=== PATIENT | female | born 1965 | race Caucasian/White ===

== ENCOUNTER 2017-12-10 10:40 | Day surgery (SDC) | payer BC ==
[2017-12-10] MEDS ORDERED: FENTANYL PF 100MCG/2ML VIAL IV ONE (10:41)
[2017-12-10] MEDS ORDERED: MIDAZOLAM HCL 2MG/2ML VIAL IV ONE (10:41)
[2017-12-10] MEDS ORDERED: PROPOFOL 10 MG/ML VIAL IV ONE (10:41)
[2017-12-10] MEDS ORDERED: LIDOCAINE 2% MDV (20MG/ML) 20ML VIAL IV ONE (10:41)
--- NOTE | 2017-12-11 12:50 | Operative Note ---
DATE OF SURGERY: 12/10/2017 OPERATION: 1. ESOPHAGOGASTRODUODENOSCOPY with biopsy and APC coagulation of gastric AVM. 2. COLONOSCOPY with cold forceps polypectomy. PREOPERATIVE DIAGNOSES: 1. Chronic heartburn despite therapy. 2. Colon cancer screening, average risk. POSTOPERATIVE DIAGNOSES: 1. Bleeding gastric AVM. 2. Gastritis. 3. Rectosigmoid colon polyp. PREPARATION QUALITY: Excellent. ESTIMATED BLOOD LOSS: Minimum. COMPLICATIONS: None apparent. PROCEDURE: After informed consent was obtained from the patient, she was placed in the left lateral decubitus position in the endoscopy suite, sedated and monitored by the department of anesthesia. A well-lubricated [id number] gastroscope was placed in the posterior oropharynx and under direct visualization passed to the proximal esophagus. The endoscope was advanced through the proximal, mid, and distal esophagus. There were some mild edematous changes at the GE junction. No other abnormalities otherwise noted. The gastric body was entered. There was bleeding at the area of the lesser curve and after rinsing, it appeared there was an underlying bleeding gastric AVM. Photograph was taken after the bleeding had subsided. There were some flecks of heme and mild diffuse erythematous changes throughout the body of the antrum. The pylorus, duodenal bulb, and sweep were unremarkable. J-turn views of the proximal stomach were unremarkable as well other than some heme flecks being noted. The endoscope was then straightened. A circumferential APC catheter was inserted through the endoscope and settings at APC for stomach were set. Several bursts were obtained with 1-2 second bursts obtained at the area of the AVM. There was noted to be white discoloration and hemostasis noted. Photograph was taken after the completion. Random gastric and antral biopsies were also obtained. No excessive bleeding was noted. The endoscope removed from the patient. No new findings noted. Digital rectal exam was unremarkable. A well-lubricated [id number] colonoscope was inserted into the rectum and advanced through a somewhat tortuous colon to the level of the cecum. Appendiceal orifice, cecum, ileocecal valve, ascending colon, transverse colon, and descending colon were unremarkable. The sigmoid colon was unremarkable; however, there was a diminutive polyp in the rectosigmoid colon which was removed with a cold forceps. Minimal bleeding was noted. The rectum was otherwise unremarkable in forward and in J-turn views. The endoscope was straightened, the rectal ampulla deflated, and the endoscope was removed. RECOMMENDATIONS: I suggest the patient switch to pantoprazole 40 mg twice daily before meals. We will await the results of tissue histology. She will require repeat colonoscopy in 5-10 years pending tissue results. As always, thank you for allowing me to participate in the healthcare of your patients. CC: Dr. Lashaun AVILA
== END 2017-12-10 12:30 | disposition home or self-care (01) ==
LOC: HOP 10:40
PROVIDERS: ATTEND Internal Medicine Gastroenterology
DX: Z12.11 Encounter for screening for malignant neoplasm of colon (principal); K63.5 Polyp of colon; K55.21 Angiodysplasia of colon with hemorrhage; K29.70 Gastritis, unspecified, without bleeding
CPT/HCPCS: 45380; 43255; 00813; J3010

== ENCOUNTER 2017-12-11 13:36 | Emergency (ER) | payer BC ==
[2017-12-11] MEDS ORDERED: 0.9 % SODIUM CHLORIDE 1,000 ML BAG IV ONE (14:00)
--- NOTE | 2017-12-11 14:00 | Emergency Department Record ---
History of Present Illness - General Chief Complaint: Abdominal Pain Stated Complaint: ABD PAIN Time Seen by Provider: 12/11/17 13:52 Source: Patient Mode of Arrival: Ambulatory Limitations: No limitations - History of Present Illness Initial Comments: 52 yo female presents with abdominal pain that is a gas feeling since an upper and lower endoscopy yesterday. No fever or vomiting. She feels very bloated. She did have a small AVM cauterized. She had a small polyp removed. No cough or shortness of breath. Her GI physician instructed her to present to the ED for evaluation. She has eaten a sandwich and drank carbonated pop. Complaint: Abdominal pain Onset/Timin -: Days(s) Location: Periumbilical Radiation: None Migration to: No migration Quality: Cramping Consistency: Constant Improves With: Nothing Worsens With: Nothing Context: Recent surgery/procedure Associated Symptoms: Other - Related Data Home Medications Medication Instructions Recorded Confirmed Last Taken Patient Home Med 1 each ASDIR 12/11/17 12/11/17 Unknown Allergies Allergy/AdvReac Type Severity Reaction Status Date / Time No Known Drug Allergies Allergy Verified 12/11/17 13:51 Travel Screening - Travel/Exposure Within Last 30 Days Have you traveled within the last 30 days?: No - Travel/Exposure Within Last Year Have you traveled outside the [place] in the last year?: No - Additonal Travel Details Have you been exposed to anyone with a communicable illness?: No - Travel Symptoms Symptom Screening: None Review of Systems Constitutional: Denies: Chills, Fever, Malaise, Weakness Eyes: Denies: Eye discharge ENT: Denies: Congestion, Throat pain Respiratory: Denies: Cough, Dyspnea, Hemoptysis, Stridor, Wheezes Cardiovascular: Denies: Chest pain, Palpitations, Syncope Endocrine: Denies: Fatigue Gastrointestinal: Reports: As per HPI, Abdominal pain Genitourinary: Denies: Dysuria, Urgency Musculoskeletal: Denies: Arthralgia, Back pain, Myalgia Skin: Denies: Bruising, Change in color, Rash Neurological: Denies: Headache, Numbness, Weakness Psychiatric: Denies: Anxiety Hematological/Lymphatic: Denies: Blood Clots, Easy bleeding, Easy bruising, Swollen glands Past Medical History - SOCIAL HISTORY Smoking Status: Never smoker Alcohol Use: Occasional Drug Use: None - RESPIRATORY Hx Respiratory Disorders: No - CARDIOVASCULAR Hx Cardio Disorders: Yes Hx Edema: Yes (occasionally, takes HCTZ PRN) - NEURO Hx Neuro Disorders: Yes Hx of Migraines: Yes - GI Hx GI Disorders: Yes Hx Reflux: Yes Hx of Polyps: Yes - Hx Genitourinary Disorders: No - ENDOCRINE Hx Endocrine Disorders: No - MUSCULOSKELETAL Hx Musculoskeletal Disorders: Yes Hx Arthritis: Yes - PSYCH Hx Psych Problems: Yes Hx Anxiety: Yes - HEMATOLOGY/ONCOLOGY Hx Hematology/Oncology Disorders: No Family Medical History Any Significant Family History?: No Family Hx Comment (NOT TO BE USED IN PLACE OF ITEMS BELOW): adopted Physical Exam - General General Appearance: Alert, Oriented x3, Cooperative, No acute distress Limitations: No limitations - Head Head exam: Normal inspection - Eye Eye exam: Normal appearance, PERRL. negative: Conjunctival injection, Scleral icterus - ENT ENT exam: Normal exam, Mucous membranes moist Ear exam: Normal external inspection Nasal Exam: Normal inspection Mouth exam: Normal external inspection - Neck Neck exam: Normal inspection, Full ROM. negative: Tenderness - Respiratory Respiratory exam: Normal lung sounds bilaterally. negative: Respiratory distress - Cardiovascular Cardiovascular Exam: Regular rate, Normal rhythm, Normal heart sounds - GI/Abdominal GI/Abdominal exam: Soft, Normal bowel sounds, Tenderness (mildly diffusely tender, greater in the lower abdomen). negative: Distended, Guarding, Rigid - Rectal Rectal exam: Deferred - exam: Deferred - Extremities Extremities exam: Normal inspection, Full ROM, Normal capillary refill. negative: Tenderness - Back Back exam: Reports: Normal inspection, Full ROM. Denies: Muscle spasm, Rash noted, Tenderness - Neurological Neurological exam: Alert, Normal gait, Oriented X3 - Psychiatric Psychiatric exam: Normal affect, Normal mood - Skin Skin exam: Dry, Intact, Normal color, Warm Course Vital Signs 12/11/17 13:37 Temperature 97.9 F Pulse Rate 90 Respiratory 20 Rate Blood Pressure 134/86 Pulse Ox 97 - Reevaluation(s) Reevaluation #1: 12/11/17 14:26 The vitals were reviewed No acute changes 12/11/17 15:02 No acute changes on the CBC 12/11/17 15:09 Normal lactic Acid at 0.8 12/11/17 15:44 The lipase was normal The patient is passing some flatus at this time. 12/11/17 17:19 No acute findings on the CT scan, stool in the R colon, Non obstructing renal stones. The patient is doing very well. We discussed reasons to return and bland diet over the weekend Medical Decision Making - Lab Data Result diagrams: 12/11/17 14:15 12/11/17 14:15 Disposition Disposition: Discharge Clinical Impression: Abdominal pain Disposition: Home, Self-Care Condition: (1) Good Instructions: Abdominal Pain (ED) Additional Instructions: Return over the week if you have fever, vomiting, pain or any new concerns Piru diet the next few days. Forms: Patient Portal Access Time of Disposition: 17:20 Quality - Quality Measures Quality Measures: N/A - Blood Pressure Screening Does Patient Have Any of the Following: No Blood Pressure Classification: Pre-Hypertensive BP Reading Systolic Measurement: 134 Diastolic Measurement: 86 Screening for High Blood Pressure: < Pre-Hypertensive BP, F/U Documented > [ [id number]] Pre-Hypertensive Follow-up Interventions: Referral to alternative/primary care provider.
[2017-12-11 14:32] LABS: HEMATOCRIT 41.3 % (35.0-47.0); HEMOGLOBIN 12.9 gm/dl (11.6-16.0); MEAN CELL VOLUME 88.6 fl (81-97); MEAN CORPUSCULAR HEMOGLOBIN 27.7 pg (27-33); MEAN CORPUSCULAR HGB CONC 31.2 g/dl (32-36); PLATELET COUNT 115 K/uL (130-400); RED BLOOD COUNT 4.66 M/uL (3.80-5.40); RED CELL DISTRIBUTION WIDTH 13.7 % (11.5-14.5); WHITE BLOOD COUNT W/O DIFF 6.4 K/uL (4.2-12.2)
[2017-12-11 14:50] LABS: PLATELET ESTIMATE DECREASED (NORMAL)
[2017-12-11 15:23] LABS: ALB/GLOB RATIO 1.5 (1.1-1.8); ALBUMIN 4.3 g/dL (4.0-5.0); ALKALINE PHOSPHATASE 77 U/L (35-104); ALT/SGPT 22 U/L (<33); AST/SGOT 28 U/L (10.0-35.0); BILIRUBIN,TOTAL < 0.20 mg/dL (0.2-1.0); BLOOD UREA NITROGEN 10 mg/dL (6-20); CREATININE 0.7 mg/dL (0.5-0.9); EST GLOMERULAR FILTRATION RATE > 60 mL/min; GLUCOSE,RANDOM 82 mg/dL (74-109); TOTAL PROTEIN 7.1 g/dL (6.6-8.7)
[2017-12-11 15:32] LABS: LIPASE 57 U/L (13-60)
--- NOTE | 2017-12-12 11:41 | CT SCAN REPORT ---
DATE: 12/11/2017. EXAM: CT SCAN OF THE ABDOMEN AND PELVIS WITH INTRAVENOUS AND ORAL CONTRAST. HISTORY: Status post colonoscopy; now unable to pass gas. TECHNIQUE: Oral and 100 mL of Omnipaque 300 intravenous contrast were administered followed by imaging from the dome of the diaphragm to the symphysis pubis. FINDINGS: The lung bases and pleural spaces are clear. The liver is unremarkable in size and shape without focal mass or biliary dilatation. The gallbladder is within normal limits. The pancreas is free of focal masses or pancreatic duct dilatation. The spleen is within normal limits. No adrenal masses are seen. Multiple punctate, nonobstructing renal calculi are identified bilaterally. There is no evidence of hydronephrosis. There are no solid renal masses. There is no evidence of perinephric inflammation. There is no evidence of regional adenopathy. There is increased stool burden in the right side of the colon with mild dilatation. The small bowel is not dilated. The left side of the colon is not dilated and contains mostly gas. There is no evidence of intraperitoneal free air. There is no evidence of ascites. There are no pelvic masses. The bladder is unremarkable. The abdominal wall is within normal limits. The spine demonstrates no lytic or blastic lesions. IMPRESSION: 1. MULTIFOCAL TINY BILATERAL RENAL CALCULI WITHOUT EVIDENCE OF A URETERAL CALCULUS. 2. CONSTIPATION WITH INCREASED STOOL BURDEN IN THE RIGHT SIDE OF THE COLON BUT NO EVIDENCE OF PERFORATION OR BOWEL OBSTRUCTION. JOB NUMBER: [id number] [facility]
== END 2017-12-11 17:29 | disposition home or self-care (01) ==
LOC: ER 13:36
DX: R10.33 Periumbilical pain (principal); K59.00 Constipation, unspecified; N20.0 Calculus of kidney
CPT/HCPCS: 99284 ×2; 96360; 96361; 83605; 83690; 80053; 85027; 74177; Q9967; J7030

== ENCOUNTER 2018-03-27 16:04 | Emergency (ER) | payer BC ==
[2018-03-27] MEDS ORDERED: AMOXICILLIN/POTASSIUM CLAV 875MG/125MG TABLET PO ONE (16:22)
--- NOTE | 2018-03-27 16:22 | Emergency Department Record ---
History of Present Illness - General Chief complaint: ENT Stated complaint: SINUS INFECTION Time Seen by Provider: 03/27/18 16:15 Source: Patient Mode of Arrival: Ambulatory Limitations: No limitations - History of Present Illness Initial comments: 52 yo female presents with congestion, sinus pressure, sore throat. She has noted some mild swollen glands on the left as well. The maxillary sinus area has pressure. No fever. No cough. She does have lupus on Remicade. No rash. No vomiting or diarrhea but some nausea. No chest, back or abdominal pain. MD complaint: Ear pain, Sore throat, Other Onset/Timin -: Days(s) Severity: Mild Consistency: Constant Improves with: None Worsens with: None Associated Symptoms: Rhinorrhea, Sore throat - Related Data Previous Rx's Medication Instructions Recorded Amoxicillin/Potassium Clav 1 tab PO BID #14 tab 03/27/18 [Augmentin 875-125 Tablet] Fluconazole [Diflucan] 150 mg PO ONCE #2 tab 03/27/18 Ondansetron [Zofran Odt] 4 mg PO Q8H #15 tab.rapdis 03/27/18 Allergies Allergy/AdvReac Type Severity Reaction Status Date / Time No Known Drug Allergies Allergy Verified 03/27/18 16:07 Travel Screening - Travel/Exposure Within Last 30 Days Have you traveled within the last 30 days?: No - Travel/Exposure Within Last Year Have you traveled outside the [place] in the last year?: No - Additonal Travel Details Have you been exposed to anyone with a communicable illness?: No - Travel Symptoms Symptom Screening: None Review of Systems Constitutional: Reports: Chills, Malaise. Denies: Fever, Weakness Eyes: Denies: Eye discharge, Eye pain, Photophobia, Vision change ENT: Reports: Congestion, Ear pain, Throat pain. Denies: Dental pain, Epistaxis , Hearing loss Respiratory: Denies: Cough, Dyspnea, Hemoptysis, Stridor, Wheezes Cardiovascular: Denies: Chest pain, Palpitations, Syncope Endocrine: Denies: Fatigue Gastrointestinal: Reports: Nausea. Denies: Abdominal pain, Diarrhea, Vomiting Genitourinary: Denies: Dysuria, Urgency Musculoskeletal: Denies: Arthralgia, Back pain, Joint swelling, Myalgia Skin: Denies: Bruising, Change in color, Rash Neurological: Denies: Headache Psychiatric: Denies: Anxiety Hematological/Lymphatic: Denies: Easy bleeding, Easy bruising Past Medical History - SOCIAL HISTORY Smoking Status: Never smoker Alcohol Use: None Drug Use: None - RESPIRATORY Hx Respiratory Disorders: No - CARDIOVASCULAR Hx Cardio Disorders: Yes Hx Edema: Yes (occasionally, takes HCTZ PRN) - NEURO Hx Neuro Disorders: Yes Hx of Migraines: Yes - GI Hx GI Disorders: Yes Hx Reflux: Yes Hx of Polyps: Yes - Hx Genitourinary Disorders: No - ENDOCRINE Hx Endocrine Disorders: No - MUSCULOSKELETAL Hx Musculoskeletal Disorders: Yes Hx Arthritis: Yes - PSYCH Hx Psych Problems: Yes Hx Anxiety: Yes - HEMATOLOGY/ONCOLOGY Hx Hematology/Oncology Disorders: No Family Medical History Any Significant Family History?: No Family Hx Comment (NOT TO BE USED IN PLACE OF ITEMS BELOW): adopted Physical Exam - General General Appearance: Alert, Oriented x3, Cooperative, No acute distress Limitations: No limitations - Head Head exam: Atraumatic, Normal inspection - Eye Eye exam: Normal appearance, PERRL. negative: Conjunctival injection, Scleral icterus - ENT ENT exam: Normal exam, Mucous membranes moist, Normal orophraynx, TM's normal bilaterally Ear exam: Normal external inspection Nasal Exam: Discharge, Sinus tenderness (maxillary). negative: Normal inspection, Active bleeding, Dried blood Mouth exam: negative: Drooling Teeth exam: Normal inspection Throat exam: Normal inspection. negative: Tonsillar erythema, Tonsillomegaly, Tonsillar exudate, R peritonsillar mass, L peritonsillar mass - Neck Neck exam: Normal inspection, Lymphadenopathy (mild small on the left) - Respiratory Respiratory exam: Normal lung sounds bilaterally. negative: Respiratory distress - Cardiovascular Cardiovascular Exam: Regular rate, Normal rhythm, Normal heart sounds - GI/Abdominal GI/Abdominal exam: Soft. negative: Tenderness - Rectal Rectal exam: Deferred - exam: Deferred - Extremities Extremities exam: Normal inspection, Full ROM, Normal capillary refill. negative: Tenderness - Back Back exam: Denies: CVA tenderness (R), CVA tenderness (L) - Neurological Neurological exam: Alert, Oriented X3 - Psychiatric Psychiatric exam: Normal affect, Normal mood. negative: Agitated, Anxious - Skin Skin exam: Dry, Intact, Normal color, Warm Course Vital Signs 03/27/18 16:10 Temperature 98.2 F Pulse Rate 73 Respiratory 18 Rate Blood Pressure 108/79 Pulse Ox 97 - Reevaluation(s) Reevaluation #1: 03/27/18 16:25 Examination is consistent with sinus infection. She is on immuno-suppressant medication so Augmentin prescribed Disposition Disposition: Discharge Clinical Impression: Sinusitis Qualifiers: Sinusitis location: maxillary Chronicity: acute Recurrence: non-recurrent Qualified Code(s): J01.00 - Acute maxillary sinusitis, unspecified Disposition: Home, Self-Care Condition: (1) Good Instructions: Sinusitis (ED) Additional Instructions: Call your doctor for close follow up this week Return or be seen if worse, fever, vomiting or any new concerns Prescriptions: Amoxicillin/Potassium Clav [Augmentin 875-125 Tablet] 1 tab PO BID #14 tab Fluconazole [Diflucan] 150 mg PO ONCE #2 tab Ondansetron [Zofran Odt] 4 mg PO Q8H #15 tab.rapdis Time of Disposition: 16:28 Quality - Quality Measures Quality Measures: N/A - Blood Pressure Screening Does Patient Have Any of the Following: No Blood Pressure Classification: Normal BP Reading Systolic Measurement: 108 Diastolic Measurement: 79 Screening for High Blood Pressure: < Normal BP, F/U Not Required > [G8783]
== END 2018-03-27 16:36 | disposition home or self-care (01) ==
LOC: ER 16:04
DX: J01.00 Acute maxillary sinusitis, unspecified (principal); J02.9 Acute pharyngitis, unspecified
CPT/HCPCS: 99282